=== PATIENT | male | born 1960 | race Two or more races ===

== ENCOUNTER 2024-11-10 18:05 | Emergency (ER) | payer MEDICARE, OTHER ==
[~2024-11-10] VITALS: Ht 162.6 cm; Wt 74.4 kg
[2024-11-10 19:17] LABS: BASOPHILS % (AUTO) 0.6 % (0.0-2.0); EOSINOPHILS # (AUTO) 0.3 K/uL (0.0-0.7); EOSINOPHILS % (AUTO) 3.5 % (0.0-6.0); HEMATOCRIT 36 % (39-51); LYMPHOCYTES # (AUTO) 1.5 K/uL (0.8-4.8); LYMPHOCYTES % (AUTO) 18.4 % (20.0-44.0); MEAN CORPUSCULAR HEMOGLOBIN 29 PG (26.0-33.0); MEAN CORPUSCULAR HGB CONC 33 g/dl (31.0-36.0); MEAN CORPUSCULAR VOLUME 87 fL (80-96); MONOCYTES # (AUTO) 0.9 K/uL (0.1-1.30); MONOCYTES % (AUTO) 10.5 % (2.0-12.0); NEUTROPHILS # (AUTO) 5.6 K/uL (1.8-8.9); PLATELET COUNT (AUTO) 293 K/uL (150-450); RED BLOOD CELL COUNT(AUTO) 4.19 MIL/uL (4.5-6.0); RED CELL DISTRIBUTION WIDTH 16.2 % (11.5-15.0); WHITE BLOOD COUNT (AUTO) 8.3 K/uL (4.3-11.0)
[2024-11-10 19:56] LABS: ALBUMIN 3.3 g/dL (3.4-5.0); BILIRUBIN,TOTAL 0.3 mg/dL (0.2-1.0); CALCIUM, SERUM 9.4 mg/dL (8.5-10.1); CREATININE 0.8 mg/dL (0.6-1.3)
[2024-11-10 19:58] LABS: POTASSIUM 3.9 mmol/L (3.5-5.1)
[2024-11-10 20:03] LABS: BILIRUBIN,DIRECT 0.1 mg/dL (0.0-0.2)
[2024-11-10] MEDS ORDERED: IV NS 0.9% 250 ML IV ONE (20:14)
[2024-11-10] MEDS ORDERED: IOHEXOL-300 100 ML VIAL IV ONE (20:14)
[2024-11-10] MEDS ORDERED: ONDANSETRON HCL/PF 4 MG/2 ML VIAL ONE (20:32)
[2024-11-10] MEDS: ONDANSETRON HCL/PF 4 MG/2 ML VIAL IV ONE (20:34)
[2024-11-11 00:37] VITALS: BP 131/68; TEMP 98.2; O2SAT 100
== END 2024-11-11 00:41 ==
LOC: ER 18:15
DX: C09.9 Malignant neoplasm of tonsil, unspecified (principal); Z86.73 Personal history of transient ischemic attack (TIA), and cerebral infarction without residual deficits; Z88.1 Allergy status to other antibiotic agents
CPT/HCPCS: 99285; 96374; 70491; 71045; 93005; 85025; 80048; 87070; 80076; 36415; 87880; 82962; J2405; J7050; Q9967; 86403-TC